=== PATIENT | female | born 1980 | race Caucasian/White ===

== ENCOUNTER 2020-09-08 16:47 | Emergency (ER) | payer MEDICARE ==
[~2020-09-08] VITALS: Ht 160 cm; Wt 72.6 kg
[2020-09-08] MEDS ORDERED: HALOPERIDOL LACTATE 5 MG/ML VIAL IM ONE (17:30)
[2020-09-08 18:24] LABS: BASOPHILS # (AUTO) 0.1 (0.0-0.1); BASOPHILS % 0.8 % (0.0-1.0); EOSINOPHILS # (AUTO) 0.4 (0.0-0.4); EOSINOPHILS % 5.2 % (0.0-6.0); HEMATOCRIT 37.1 % (34.2-44.1); HEMOGLOBIN 11.9 g/dL (12.0-16.0); LYMPHOCYTES # (AUTO) 2.2 (1.0-3.2); LYMPHOCYTES % 28.6 % (18.0-39.1); MEAN CORPUSCULAR HEMOGLOBIN 30.7 pg (28-32); MEAN CORPUSCULAR HGB CONC 32.1 g/dL (31-35); MEAN CORPUSCULAR VOLUME 95.6 fL (81-99); MONOCYTES # (AUTO) 0.6 (0.2-0.8); MONOCYTES % 8.2 % (4.4-11.3); NEUTROPHILS # (AUTO) 4.4 (2.1-6.9); NEUTROPHILS % 56.9 % (38.7-80.0); PLATELET COUNT 254 x10e3/uL (140-360); RED BLOOD COUNT 3.88 x10e6/uL (3.6-5.1); RED CELL DISTRIBUTION WIDTH 12.6 % (11.7-14.4)
[2020-09-08 18:28] LABS: COLOR,URINE BROWN (YELLOW)
[2020-09-08 18:29] LABS: CLARITY,URINE CLOUDY (CLEAR); LEUKOCYTE ESTERASE ,URINE TRACE (NEGATIVE)
[2020-09-08 18:30] LABS: KETONES,URINE NEGATIVE (NEGATIVE); NITRITE,URINE NEGATIVE (NEGATIVE); PROTEIN,URINE DIPSTICK 2+ (NEGATIVE); URINE UROBILINOGEN 0.2 mg/dL (0.2 - 1)
[2020-09-08 18:40] LABS: EPITHELIAL CELLS,URINE MODERATE /LPF; RBC,URINE >50 /HPF (0-5)
[2020-09-08 18:42] LABS: ALBUMIN 3.8 g/dL (3.5-5.0); ALBUMIN/GLOBULIN RATIO 1.2 (0.8-2.0); ANION GAP 12.8 mmol/L (8-16); CALCIUM 8.9 mg/dL (8.4-10.2); CREATININE, SERUM 1.1 mg/dL (0.57-1.11); POTASSIUM 3.8 mmol/L (3.5-5.1)
[2020-09-08] MEDS ORDERED: LORAZEPAM INJ 2 MG/ML VIAL ONE ×2 (19:09→20:07)
[2020-09-08] MEDS ORDERED: KEPPRA500 MG PO (19:10)
[2020-09-08] MEDS ORDERED: OXCARBAZEPINE600 MG PO (19:11)
[2020-09-08] MEDS ORDERED: LORAZEPAM INJ 2 MG/ML VIAL IV ONE (20:00)
[2020-09-08] MEDS ORDERED: IOPAMIDOL 370 MG/ML 200 ML INFUS..BTL INJ ONE (21:42)
[2020-09-08] MEDS ORDERED: SODIUM CHLORIDE 0.9% 50ML 50 ML ONE (21:42)
[2020-09-09] MEDS ORDERED: CEPHALEXIN500 MG PO (00:56)
== END 2020-09-09 01:20 | disposition home or self-care (01) ==
LOC: ER 17:25
DX: R31.9 Hematuria, unspecified (principal); G40.909 Epilepsy, unspecified, not intractable, without status epilepticus; Q85.1 Tuberous sclerosis
CPT/HCPCS: 36415; 74177; 80053; 81001; 81025; 85025; 99284; J2060; Q9967; U0002; J1630

== ENCOUNTER → 2020-10-08 | Outpatient (CLI) | payer MEDICARE ==
[~2020-10-08] MED LIST: CEPHALEXIN500 MG PO; GADOBENATE DIMEGLUMINE 1 ML IV ONE; KEPPRA500 MG PO; OXCARBAZEPINE600 MG PO
== END ==
LOC: MRI 07:41
PROVIDERS: ATTEND Internal Medicine Nephrology
DX: N28.89 Other specified disorders of kidney and ureter (principal)
CPT/HCPCS: 74183; A9577

== ENCOUNTER → 2021-10-28 | Outpatient (CLI) | payer MEDICARE ==
[~2021-10-28] MED LIST changes: -GADOBENATE DIMEGLUMINE 1 ML IV ONE; +IOPAMIDOL 370 MG/ML 100 ML INFUS..BTL INJ ONE
[2021-10-28 08:58] LABS: CREATININE, SERUM 1.02 mg/dL (0.57-1.11)
== END ==
LOC: CT 07:40
PROVIDERS: ATTEND Internal Medicine Nephrology
DX: N28.89 Other specified disorders of kidney and ureter (principal)
CPT/HCPCS: 36415; 74178; 82565; 84520; Q9967

== ENCOUNTER 2025-01-17 09:32 | Emergency (ER) | payer MEDICARE ==
[~2025-01-17] VITALS: Ht 165.1 cm; Wt 47.6 kg
[~2025-01-17 09:32] MED LIST changes: -IOPAMIDOL 370 MG/ML 100 ML INFUS..BTL INJ ONE
[2025-01-17 09:46] VITALS: TEMP 98.1
[2025-01-17 10:21] LABS: BASOPHILS % 0.3 % (0.0-1.0); EOSINOPHILS % 0.6 % (0.0-6.0); LYMPHOCYTES % 5.4 % (18.0-39.1); MONOCYTES % 5.9 % (4.4-11.3); NEUTROPHILS % 87.5 % (38.7-80.0); RED CELL DISTRIBUTION WIDTH 12.6 % (11.7-14.4)
[2025-01-17 11:04] LABS: EST GLOMERULAR FILTRATION RATE 51.0 ML/MIN (>=60)
[2025-01-17 11:56] VITALS: PULSE 85; RESP 18; O2SAT 97
== END 2025-01-17 11:59 | disposition home or self-care (01) ==
LOC: ER 09:41
DX: R19.7 Diarrhea, unspecified (principal); G40.909 Epilepsy, unspecified, not intractable, without status epilepticus; G80.9 Cerebral palsy, unspecified; Q85.1 Tuberous sclerosis
CPT/HCPCS: 36415; 80053; 83690; 85025; 99283